=== PATIENT | male | born 1965 | race Caucasian/White ===

== ENCOUNTER → 2016-05-25 | Outpatient (CLI) | payer OTHER ==
--- NOTE | 2016-05-25 10:45 | US ---
Ultrasound Chest History: Left parasternal mass Comparison: None Findings: The paraspinal mass is macrolobulated and demonstrates subtle internal vascularity. The mas s is consistent with a benign lipoma measuring 4.5 x 0.9 x 3.7 cm. Impression: Consistent with a benign lipoma.
== END ==
LOC: FIMAGING 09:37
PROVIDERS: ATTEND Internal Medicine
DX: D17.79 Benign lipomatous neoplasm of other sites (principal)

== ENCOUNTER 2016-09-01 20:42 | Emergency (ER) | payer OTHER ==
[2016-09-01 20:48] VITALS: RESP 18
[2016-09-01] MEDS ORDERED: NS 1,000 ML IV ONE ×2 (21:24→21:51)
--- NOTE | 2016-09-01 21:41 | EDPHY ---
H & P Time Seen by Provider: 09/01/16 21:21 HPI/ROS: CHIEF COMPLAINT: Vomiting and diarrhea HISTORY OF PRESENT ILLNESS: Patient is a 51-year-old male with a history of adrenal failure. 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 He takes multiple replacement medications including hydrocortisone, fludrocortisone, levothyroxine and testosterone. The patient states that he developed a stomach flu on at 3:00 a.m.. His daughter who is 2 years old had recently had seen. Both he and his became sick at the same time. He had multiple episodes of vomiting and diarrhea. He took 3 doses of 100 mg IM cords all yesterday. He was doing better until 1230 today when he started worsening. He took another dose of Solu-Cortef at 6:30 p.m.. Patient reports that he took his medication while having "a crisis." This is different than his stomach flu-like symptoms. He denies any fevers or chills. Patient has had no recent foreign travel. Of note he has been taking Bactrim for the past few weeks for sinus infection. REVIEW OF SYSTEMS: My complete review of systems is negative except as mentioned in the HPI. Past Medical/Surgical History: Adrenal insufficiency, Claremont's disease Past surgical history: Includes pituitary surgery, appendectomy Smoking Status: Never smoked Physical Exam: vitals noted GENERAL: No acute distress, alert. HEENT: Eyes normal to inspection, normal pharynx, no signs of dehydration. NECK: No thyromegaly, no lymphadenopathy, supple. RESPIRATORY: Clear to auscultation bilaterally, no rales, rhonchi or wheezing. CVS: Regular rate and rhythm, no rubs, murmurs, or gallops. ABDOMEN: Soft, minimal bilateral lower abdominal tenderness palpation with no rebound or guarding. Nondistended, no organomegaly. BACK: Normal to inspection, no CVA tenderness. SKIN: Normal color, no rash, warm, dry. No pallor. EXTREMITIES: No pedal edema, no calf tenderness, no Homans sign or cords, no joint swelling. NEURO/PSYCH: Alert and oriented x3, normal mood and affect, normal motor sensory exam. Constitutional: Initial Vital Signs Temperature (C) 37.3 C 09/01/16 20:45 Heart Rate 105 H 09/01/16 20:45 Respiratory Rate 18 09/01/16 20:45 Blood Pressure 141/87 H 09/01/16 20:45 O2 Sat (%) 95 09/01/16 20:45 O2 Delivery Mode Room Air Allergies/Adverse Reactions: ampicillin Allergy (Verified 09/01/16 20:49) Cephalosporins Allergy (Verified 09/01/16 20:49) Home Medications: Medication Instructions Recorded HYDROCORTISONE [BALNEOL FOR HER] 40 gm TP 09/01/16 Levothyroxine Sodium [Tirosint] 125 mcg PO DAILY 09/01/16 RX: FLUDROCORTISONE ACETATE 0.1 mg PO 09/01/16 RX: Liothyronine Sodium 5 mcg PO 09/01/16 RX: Testosterone 09/01/16 Medical Decision Making ED Course/Re-evaluation: In the emergency department I discussed possible etiologies with the patient. I answered all his questions. IV was placed. The patient had laboratory studies ordered. The patient was given 1 L of normal saline for hydration. Patient's white count was minimally elevated at 12. Patient is on steroids and has been vomiting. The rest of his CBC was unremarkable. His chemistry, LFTs and lipase are normal. Patient's GI pathogen and C diff are pending and will not be available tonight. I contacted the lab to confirm. [id number]: I rechecked the patient. He states he was feeling much better. He still was concerned that he may have mild dehydration. He requested more fluid. a 2nd L of normal saline was given. I discussed all results with the patient. He is aware that the GI pathogen and C diff studies are pending. He was given warnings. He will return to the emergency department with worsening symptoms. Differential Diagnosis: My differential includes but is not limited to adrenal crisis, gastroenteritis, small-bowel obstruction, perforation, bacteremia, sepsis, dehydration - Data Points Laboratory Results: Laboratory Results 09/01/16 21:15 09/01/16 21:15 09/01/16 09/01/16 09/01/16 22:20 21:15 21:15 WBC 12.15 10^3/uL H 10^3/uL (3.80-9.50) RBC 5.23 10^6/uL 10^6/uL (4.40-6.38) Hgb 17.2 g/dL g/dL (13.7-17.5) Hct 47.7 % % (40.0-51.0) MCV 91.2 fL fL (81.5-99.8) MCH 32.9 pg pg (27.9-34.1) MCHC 36.1 g/dL g/dL (32.4-36.7) RDW 13.2 % % (11.5-15.2) Plt Count 136 10^3/uL L 10^3/uL (150-400) MPV 11.0 fL fL (8.7-11.7) Neut % (Auto) 90.7 % H % (39.3-74.2) Lymph % (Auto) 2.7 % L % (15.0-45.0) Gordon % (Auto) 5.8 % % (4.5-13.0) Eos % (Auto) 0.1 % L % (0.6-7.6) Baso % (Auto) 0.2 % L % (0.3-1.7) Nucleat RBC Rel Count 0.0 % % (0.0-0.2) Absolute Neuts (auto) 11.02 10^3/uL H 10^3/uL (1.70-6.50) Absolute Lymphs (auto) 0.33 10^3/uL L 10^3/uL (1.00-3.00) Absolute Monos (auto) 0.70 10^3/uL 10^3/uL (0.30-0.80) Absolute Eos (auto) 0.01 10^3/uL L 10^3/uL (0.03-0.40) Absolute Basos (auto) 0.03 10^3/uL 10^3/uL (0.02-0.10) Absolute Nucleated RBC 0.00 10^3/uL 10^3/uL (0-0.01) Immature Gran % 0.5 % % (0.0-1.1) Immature Gran # 0.06 10^3/uL 10^3/uL (0.00-0.10) Sodium 137 mEq/L mEq/L (134-144) Potassium 3.5 mEq/L mEq/L (3.5-5.2) Chloride 104 mEq/L mEq/L (97-110) Carbon Dioxide 22 mEq/l mEq/l (22-31) Anion Gap 11 mEq/L mEq/L (8-16) BUN 25 mg/dL H mg/dL (7-23) Creatinine 1.0 mg/dL mg/dL (0.7-1.3) Estimated GFR > 60 Glucose 105 mg/dL H mg/dL (70-100) Calcium 8.7 mg/dL mg/dL (8.5-10.4) Total Bilirubin 1.0 mg/dL mg/dL (0.1-1.4) Conjugated Bilirubin 0.5 mg/dL mg/dL (0.0-0.5) Unconjugated Bilirubin 0.5 mg/dL mg/dL (0.0-1.1) AST 34 IU/L IU/L (17-59) ALT 41 IU/L IU/L (21-72) Alkaline Phosphatase 41 IU/L IU/L (38-126) Total Protein 6.0 g/dL L g/dL (6.3-8.2) Albumin 3.7 g/dL g/dL (3.5-5.0) Lipase 138.0 IU/L IU/L (23-300) C. difficile Tox (PCR) Pending Medications Given: Discontinued Medications Sodium Chloride (Ns) 1,000 mls @ 0 mls/hr IV ONCE ONE PRN Reason: Wide Open Stop: 09/01/16 21:25 Last Admin: 09/01/16 21:25 Dose: 1,000 mls Departure - Departure Disposition: Home, Routine, Self-Care Clinical Impression: Adrenal crisis Diarrhea Qualifiers: Diarrhea type: unspecified type Qualified Code(s): R19.7 - Diarrhea, unspecified Condition: Good Instructions: Acute Diarrhea (ED) Additional Instructions: Return with increasing abdominal pain, fever, bloody diarrhea, vomiting or any other concerns. You have two test still pending: GI pathogen and C difficile. Referrals: Karen Abel MD [Primary Care Provider] - 2-3 days, call for appt.
[2016-09-01 21:44] LABS: ANION GAP 11 mEq/L (8-16); CALCIUM 8.7 mg/dL (8.5-10.4); CARBON DIOXIDE 22 mEq/l (22-31); CHLORIDE 104 mEq/L (97-110); GLOMERULAR FILTRATION RATE > 60; GLUCOSE 105 mg/dL (70-100); POTASSIUM 3.5 mEq/L (3.5-5.2); SODIUM 137 mEq/L (134-144)
[2016-09-01 21:56] LABS: % IMMATURE GRANULYOCYTES 0.5 % (0.0-1.1); ABSOLUTE IMMATURE GRANULOCYTES 0.06 10^3/uL (0.00-0.10); ADD DIFF? NO; ADD MORPH? NO; ADD SCAN? NO; ATYPICAL LYMPHOCYTE FLAG 0 (0-99); FRAGMENT RBC FLAG 0 (0-99); HEMATOCRIT 47.7 % (40.0-51.0); HEMOGLOBIN 17.2 g/dL (13.7-17.5); LEFT SHIFT FLG 10 (0-99); LIPEMIA HEMOLYSIS FLAG 90 (0-99); MEAN CELL HEMOGLOBIN 32.9 pg (27.9-34.1); MEAN CELL HEMOGLOBIN CONCENTR. 36.1 g/dL (32.4-36.7); MEAN CELL VOLUME 91.2 fL (81.5-99.8); PLATELET CLUMPS FLAG 0 (0-99); PLATELET COUNT 136 10^3/uL (150-400); RED BLOOD CELL COUNT 5.23 10^6/uL (4.40-6.38); RED CELL DISTRIBUTION WIDTH 13.2 % (11.5-15.2)
[2016-09-01 22:13] LABS: ALANINE AMINOTRANSFERASE 41 IU/L (21-72); ALBUMIN 3.7 g/dL (3.5-5.0); ALKALINE PHOSPHATASE 41 IU/L (38-126); ASPARTATE AMINOTRANSFERASE 34 IU/L (17-59); BILIRUBIN-CONJUGATED 0.5 mg/dL (0.0-0.5); BILIRUBIN-UNCONJUGATED 0.5 mg/dL (0.0-1.1)
[2016-09-01 23:53] VITALS: BP 129/79; PULSE 93; TEMP 98.6; O2SAT 97
== END 2016-09-01 23:53 | disposition home or self-care (01) ==
DX: E27.2 Addisonian crisis (principal)

== ENCOUNTER → 2017-03-11 | Outpatient (CLI) | payer OTHER | LOC: BMCIMAGING 10:11 | PROVIDERS: ATTEND Internal Medicine | DX: M79.601 Pain in right arm (principal); Z85.9 Personal history of malignant neoplasm, unspecified ==

== ENCOUNTER → 2018-08-04 | Outpatient (CLI) | payer OTHER | LOC: FIMAGING 08:38 | PROVIDERS: ATTEND Internal Medicine | DX: Z13.820 Encounter for screening for osteoporosis (principal); Z79.52 Long term (current) use of systemic steroids ==